=== PATIENT | female | born 1970 | race Caucasian/White ===

== ENCOUNTER → 2018-11-11 | Outpatient (CLI) | payer BC | LOC: BMCIMAGING 09:17 | PROVIDERS: ATTEND Internal Medicine Rheumatology | DX: M45.0 Ankylosing spondylitis of multiple sites in spine (principal); M50.221 Other cervical disc displacement at C4-C5 level; M50.321 Other cervical disc degeneration at C4-C5 level; M50.322 Other cervical disc degeneration at C5-C6 level ==

== ENCOUNTER → 2018-12-28 | Outpatient (CLI) | payer BC | LOC: BMCIMAGING 13:53 | PROVIDERS: ATTEND Internal Medicine Rheumatology | DX: M54.6 Pain in thoracic spine (principal); M47.9 Spondylosis, unspecified ==

== ENCOUNTER → 2019-03-30 | Outpatient (CLI) | payer BC | LOC: BMCIMAGING 10:31 ==